=== PATIENT | female | born 1945 | race Two or more races ===

== ENCOUNTER → 2016-08-05 | Day surgery (SDC) | payer MEDICARE, OTHER ==
[2016-08-05] VITALS (8 sets, daily range): BP systolic 117–130; BP diastolic 73–89
[~2016-08-05] VITALS: Ht 167.6 cm; Wt 74.8 kg
[~2016-08-05] MED LIST: ACYCLOVIR200 MG ORAL; AMLODIPINE BESYL5 MG ORAL; Bacitracin Oint 15gm Tube TOPIC ONE; Betadine 10% Oint 15gm TOPIC ONE; Bupivacaine 0.5% Inj 30 ml vial INJ ONE; CAPTOPRIL25 M1 PO; COLACE100 MG ORAL; Dexamethasone 4mg/ml vial ONE; ENALAPRIL MALEA10 MG ORAL; Etomidate 40mg/20ml Inj IV ONE; LR 1000ml 1,000 ML IVLG SCH; LR 1000ml ONE; Lidocaine 1% Plain 30 ml INJ ONE; METFORMIN HCL500 M1 ORAL; NORCO 5-325 TA1 EACH ORAL; NS Irrig 1000ml ONE; Propofol 10mg/ml 100ml btl IV ONE; Propofol 10mg/ml 20ml IV ONE; SIMVASTATIN20 MG ORAL; Sterile Water Irrig 1000ml IRRIG ONE; TENORMIN25 MG ORAL; TRIBENZOR 40-11 EAC1 ORAL; fentaNYL 100 mcg/2 mL IV ONE; fentaNYL 100 mcg/2 mL IV PRN
--- NOTE | 2016-08-05 07:41 | Pre-Procedure Note/Attestation ---
Pre-Procedure Note/Attestation Complete Prior to Procedure Planned Procedure: right Procedure Narrative: Bunionectomy osteotomy right foot Hammertoe correction second right digit Tenotomy and capsulotomy second right MTPJ Indications for Procedure Pre-Operative Diagnosis: Hallux Abducto Valgus right foot Hammertoe deformity second right digit Attestation I attest that I discussed the nature of the procedure; its benefits; risks and complications; and alternatives (and the risks and benefits of such alternatives ), prior to the procedure, with the patient (or the patient's legal safety representative). I attest that, if there was a reasonable possibility of needing a blood transfusion, the patient (or the patient's legal safety representative) was given the [place] Department of Health Services standardized written summary, pursuant to the [place] Blood Safety Act ([place] Health and Safety Code # 1645, as amended). I attest that I re-evaluated the patient just prior to the surgery and that there has been no change in the patient's H&P, except as documented below: JONATHON BARKER Aug 05, 2016 07:41
--- NOTE | 2016-08-05 07:57 | Anethesia Preoperative Eval ---
Anesthesia Pre-op PMH/ROS General Date of Evaluation: Aug 05, 2016 Time of Evaluation: 07:30 Anesthesiologist: Usman ASA Score: ASA 2 Mallampati Score Class I : Soft palate, uvula, fauces, pillars visible Class II: Soft palate, uvula, fauces visible Class III: Soft palate, base of uvula visible Class IV: Only hard plate visible Mallampati Classification: Class II Surgeon: Osmani Diagnosis: Bunioin right foot Surgical Procedure: bunionectomy right foot Anesthesia History: none Family History: no anesthesia problems Allergies: Coded Allergies: NO KNOWN ALLERGIES (Unverified Allergy, 04/23/13) Medications: see eMAR Past Medical History Cardiovascular: Reports: HTN Gastrointestinal/Genitourinary: Denies: CRI, ESRD, GERD, other Neurologic/Psychiatric: Denies: CVA, TIA, dementia, depression/anxiety, other Endocrine: Reports: DM HEENT: Denies: AUGUSTINE (L), AUGUSTINE (R), cataract (L), cataract (R), glaucoma, other Hematology/Immune: Denies: DVT, anemia, bleeding disorder, other Musculoskeletal/Integumentary: Denies: DDD, DJD, OA, RA, edema, other PMH Narrative: HTN, Hypercholesterolemia, DM PSxH Narrative: Right nephrectomy Anesthesia Pre-op Phys. Exam Physician Exam Last Vital Signs Date Time Temp Pulse Resp B/P Pulse Ox O2 Delivery O2 Flow Rate FiO2 08/05/16 06:35 97.2 65 20 125/79 97 Room Air Constitutional: NAD Neurologic: CN 2-12 intact Cardiovascular: RRR Respiratory: CTA Gastrointestinal: S/NT/ND Airway Exam Mallampati Score: Class II MO: full ROM: full Teeth: intact Dentures: no lower, no upper CHELA KOHLER D.O. Aug 05, 2016 07:57
--- NOTE | 2016-08-05 09:26 | Brief Operative Note ---
Immediate Post Operative Note Operative Note Pre-op Diagnosis: Hallux Abducto Valgus right foot Hammertoe deformity second right digit Procedure: Bunionectomy osteotomy right foot Arthroplasty second right PIPJ Tenotomy and capsulotomy second right MPJ Post-op Diagnosis: same as pre-op Surgeon: Osmani Anesthesiologist: Usman Anesthesia: general Specimen: yes Complications: none Condition: stable Estimated Blood Loss: none Drains: none Implant(s) used?: Yes JONATHON BARKER Aug 05, 2016 09:26
--- NOTE | 2016-08-05 09:27 | Immediate Post-Op Evaluation ---
Immediate Post-Op Evalulation Immediate Post-Op Evalulation Procedure: nithin saavedra Date of Evaluation: Aug 05, 2016 Time of Evaluation: 09:25 IV Fluids: 500ml Blood Products: none Estimated Blood Loss: minimal Urinary Output: due to void Blood Pressure Systolic: 118 Blood Pressure Diastolic: 80 Pulse Rate: 70 Respiratory Rate: 16 O2 Sat by Pulse Oximetry: 100 Temperature (Fahrenheit): 98.8 Pain Score (1-10): 0 Nausea: No Vomiting: No Complications none Patient Status: awake, reacts Drug: ancef Given Within 1 Hr of Incision: Yes Time Given: 07:50 CHELA KOHLER D.O. Aug 05, 2016 09:27
--- NOTE | 2016-08-05 09:38 | 48 Hour Post Anesthesia Eval ---
Post Anesthesia Evaluation Procedure: bunionectomy right foot Date of Evaluation: Aug 05, 2016 Time of Evaluation: 09:36 Blood Pressure Systolic: 117 0: 77 Pulse Rate: 67 Respiratory Rate: 16 Temperature (Fahrenheit): 98 O2 Sat by Pulse Oximetry: 100 Nausea: No Vomiting: No Pain Intensity: 0 Hydration Status: adequate Cardiopulmonary Status: stable Mental Status/LOC: patient returned to baseline Follow-up Care/Observations: as per surgeon Post-Anesthesia Complications: none Follow-up care needed: N/A CHELA KOHLER D.O. Aug 05, 2016 09:38
--- NOTE | 2016-08-05 10:37 | Diagnostic Imaging Report ---
Indication: POST-OP Technique: 3 views foot Comparison: none Findings: Patient is status post first metatarsal osteotomy, bunionectomy, first proximal phalangeal osteotomy, with surgical hardware is in the osteotomies. There is also evidence of osteotomy of the head of the second proximal phalanx. There is severe hammertoe deformity of the third through fifth digits.. There is a small plantar spur. A small bone island is seen within the calcaneus. Gas within the soft tissues is presumably retained air from the surgical wound are there are degenerative changes of the midfoot Impression: Postsurgical changes, as described. No unusual features
--- NOTE | 2016-08-05 18:18 | Operative Note - Dictated ---
DATE OF OPERATION: 08/05/2016 SURGEON: Chapito Keen D.P.M. ANESTHESIOLOGIST: Gustavo Mary M.D. ANESTHESIA: Local standby PREOPERATIVE DIAGNOSES: 1. Hallux abductovalgus with bunion deformity, right foot. 2. Hammertoe deformity second right digit. 3. Contracture second right metatarsophalangeal joint. POSTOPERATIVE DIAGNOSES: 1. Hallux abductovalgus with bunion deformity, right foot. 2. Hammertoe deformity second right digit. 3. Contracture second right metatarsophalangeal joint. PROCEDURES PERFORMED: 1. Modified chevron osteotomy with screw fixation, right foot. 2. Jose A osteotomy with staple fixation right foot. 3. Arthroplasty second right proximal interphalangeal joint. 4. Tenotomy and capsulotomy, second right metatarsophalangeal joint. DESCRIPTION OF THE OPERATION: The patient brought to the operating room and was placed on the operating room table in the supine position. General anesthesia was administered by the anesthesiologist. Local anesthesia consisting of 0.5% Marcaine plain total of 20 mL was administered to the right foot. An ankle tourniquet was applied to the right lower extremity. The foot was prepped and draped in the usual sterile manner. An Esmarch bandage was utilized to exsanguinate the blood and the right ankle tourniquet was inflated to 250 mmHg. Attention was directed to the right hallux where an approximately 7 cm dorsal curvilinear skin incision was performed. The incision was deepened utilizing sharp and blunt dissection with care being taken and to cauterize all bleeders. At the level of the capsule, a linear capsulotomy was performed. The capsule was reflected medially and laterally and the head of the first metatarsal and base of the proximal phalanx were exposed. Utilizing a sagittal saw, the medial eminence of the first metatarsal was removed and the wound was copiously flushed utilizing sterile saline. At this point, chevron osteotomy was performed with the apex of the distal and the arms protruding proximally the through and through osteotomy was performed utilizing the sagittal saw. The capital fragment was transposed laterally and fixated onto the first metatarsal utilizing a 22 mm 2.5 headless screw. At this point, the overhang was resected in total utilizing a sagittal saw. The remaining bone was rasped smooth. The wound was copiously flushed utilizing sterile saline. Attention was directed to the distal aspect of the joint and the soft tissue. The capsule and periosteum was reflected from the base and shaft of the proximal phalanx. Medial wedge was then resected utilizing the sagittal saw with care taken to leave the lateral cortex intact. The osteotomy was reduced and fixated with staple which was inserted just proximal and distal to the osteotomy. At this point, the wound was copiously flushed. The capsule was then reapproximated utilizing 3-0 Vicryl in simple interrupted type stitch. Subcutaneous tissue was then reapproximated utilizing 4-0 Vicryl in a buried knot type stitch. The skin was then reapproximated utilizing 4-0 nylon in a simple interrupted type stitch. Attention was then directed to the second digit where an approximately 5 centimeters dorsal linear skin incision was carried just proximal to the metatarsophalangeal joint to just distal to the proximal interphalangeal joint. The incision was deepened utilizing sharp and blunt dissection with care being taken to cauterize and ligate all bleeders. At the level of the proximal interphalangeal joint, the extensor tendon was transversely tenotomized and reflected proximally. The head of the proximal phalanx was exposed and the collateral ligaments were severed. Utilizing a sagittal saw, the head of the proximal phalanx was resected in total. The remaining bone was rasped smooth. The wound was copiously flushed utilizing sterile saline. At this point, the wound was dissected down to the level of the second metatarsophalangeal joint. The extensor tendon was tenotomized and the capsule was freed utilizing a McGlamry scoop. The joints was freed in total and the digit was brought into a rectus position. The wound was copiously flushed utilizing sterile saline. At this point, the extensor tendon was reapproximated distally with a 4-0 Vicryl in a simple interrupted type stitch. The subcutaneous tissue was then reapproximated utilizing 4-0 Vicryl in a buried knot type stitch. The skin was then reapproximated utilizing 4-0 nylon in a simple interrupted type stitch. The wound was dressed utilizing an Adaptic 4 x 4 gauze and 3 inch Gurdeep. The right ankle tourniquet was deflated and vascular supply was noted to all digits right foot. Chapito Keen D.P.M. DR: Ishaan JOB#: [id number] CC:
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
== END | disposition home or self-care (01) ==
LOC: SUR 05:41
DX: M20.11 Hallux valgus (acquired), right foot (principal); M21.611 Bunion of right foot; M20.41 Other hammer toe(s) (acquired), right foot; M24.574 Contracture, right foot; E11.9 Type 2 diabetes mellitus without complications; I10 Essential (primary) hypertension; E78.00 Pure hypercholesterolemia, unspecified; K21.9 Gastro-esophageal reflux disease without esophagitis; H93.19 Tinnitus, unspecified ear; H91.90 Unspecified hearing loss, unspecified ear; F33.9 Major depressive disorder, recurrent, unspecified; N39.3 Stress incontinence (female) (male); G47.00 Insomnia, unspecified; B00.1 Herpesviral vesicular dermatitis; M19.90 Unspecified osteoarthritis, unspecified site; R05 Cough; Z90.5 Acquired absence of kidney
CPT/HCPCS: 28270; 28285; 28299; 73630; 82962; 97161; C1713; G8978; G8979; G8980; J0690; J1100; J2405; J2704; J3010; J3490; J7120; 94003; 94150

== ENCOUNTER 2017-01-24 19:22 | Emergency (ER) | payer MEDICARE, OTHER ==
[~2017-01-24] VITALS: Ht 167.6 cm; Wt 77.1 kg
[~2017-01-24 19:22] MED LIST changes: -Bacitracin Oint 15gm Tube TOPIC ONE; -Betadine 10% Oint 15gm TOPIC ONE; -Bupivacaine 0.5% Inj 30 ml vial INJ ONE; -Dexamethasone 4mg/ml vial ONE; -Etomidate 40mg/20ml Inj IV ONE; -LR 1000ml 1,000 ML IVLG SCH; -LR 1000ml ONE; -Lidocaine 1% Plain 30 ml INJ ONE; -NS Irrig 1000ml ONE; -Propofol 10mg/ml 100ml btl IV ONE; -Propofol 10mg/ml 20ml IV ONE; -Sterile Water Irrig 1000ml IRRIG ONE; -fentaNYL 100 mcg/2 mL IV ONE; -fentaNYL 100 mcg/2 mL IV PRN
[2017-01-24 20:00] VITALS: BP 176/84
--- NOTE | 2017-01-24 21:29 | Emergency Room Report ---
History of Present Illness General Chief Complaint: Pain Source: Patient Present Illness HPI This patient complains of pain in the back of her left knee. She does have a history of arthritis here. She states that this causes cramping in her left leg. She states that the symptoms have been going on for several weeks. She denies chest pain or shortness of breath. She denies abdominal pain. She denies fever or chills. She denies leg swelling. She denies trauma. She has no other complaints. Allergies: Coded Allergies: NO KNOWN ALLERGIES (Unverified Allergy, 04/23/13) Patient History Past Medical History: see triage record, DM, HTN, GERD Social History: Denies: smoking, alcohol use, drug use Reviewed Nursing Documentation: PMH: Agreed, PSxH: Agreed Nursing Documentation-PMH Hx Cardiac Problems: Yes Hx Hypertension: Yes Hx Pacemaker: No Hx Asthma: No Hx COPD: No Hx Diabetes: Yes Hx Cancer: Yes Hx Gastrointestinal Problems: Yes Hx Dialysis: No Hx Neurological Problems: No Hx Cerebrovascular Accident: No Hx Seizures: No Review of Systems All Other Systems: negative except mentioned in HPI Physical Exam Vital Signs Date Time Temp Pulse Resp B/P (MAP) Pulse Ox O2 Delivery O2 Flow Rate FiO2 01/24/17 19:25 98.2 83 20 176/84 99 Room Air Sp02 EP Interpretation: reviewed, normal General Appearance: no apparent distress, alert, GCS 15, non-toxic Head: normocephalic, atraumatic Eyes: bilateral eye normal inspection, bilateral eye PERRL ENT: hearing grossly normal, normal pharynx, no angioedema, normal voice Neck: full range of motion, supple/symm/no masses Respiratory: chest non-tender, lungs clear, normal breath sounds, speaking full sentences Cardiovascular #1: regular rate, rhythm, no edema Gastrointestinal: normal bowel sounds, non tender, soft, non-distended, no guarding, no rebound Rectal: deferred Musculoskeletal: back normal, gait/station normal, normal range of motion, other - TTP behind the L. knee with mild swelling. No erythema or warmth. Neurologic: alert, oriented x3, responsive, motor strength/tone normal, sensory intact, speech normal Psychiatric: judgement/insight normal, memory normal, mood/affect normal, no suicidal/homicidal ideation Skin: normal color, no rash, warm/dry, well hydrated Medical Decision Making Diagnostic Impression: Primary Impression: Iglesias's cyst of knee ER Course This patient was found to have a Iglesias's cyst of the left knee. Ultrasound of the leg shows no DVT. Knee x-ray shows no acute findings. There is no evidence of cellulitis on exam. The pain and tenderness is very localized to the left knee. The patient was given an Eric wrap for comfort. The patient has multiple pain medications at home. She is instructed to followup with her primary care physician and to see an orthopedist. At this time I did not identify an emergency medical condition. The patient is given close return precautions and followup instructions. Last Vital Signs Date Time Temp Pulse Resp B/P (MAP) Pulse Ox O2 Delivery O2 Flow Rate FiO2 01/24/17 19:25 98.2 83 20 176/84 99 Room Air Status: improved Disposition: HOME, SELF-CARE Condition: Improved Referrals: NAN GRANT (PCP) SUDHAKAR BARROS D.O. Jan 24, 2017 21:29
[2017-01-24 22:03] VITALS: BP 136/70
[2017-01-24 22:45] VITALS: BP 130/72
[2017-01-24 22:50] VITALS: BP 130/72
--- NOTE | 2017-01-25 11:15 | Diagnostic Imaging Report ---
Indication: PAIN Technique: 3 views of the left knee Comparison: None Findings:There is equivocally a trace suprapatellar effusion. No acute fractures. No dislocations. Joint spaces are preserved Impression:No acute process
--- NOTE | 2017-01-26 14:43 | Diagnostic Imaging Report ---
APPROVED REPORT CPT Code: 68560 Present Symptoms Lower Extremity Pain: Left Lower Extremity Edema: Left Comments: Left knee pain. Hx bilateral arthritis at the knee. LEFT LEG: Venous imaging reveals a patent deep venous system. There is no evidence of thrombus within the femoral, popliteal or tibial segments. The greater saphenous vein is also within normal limits. Doppler indicates normal spontaneous flow within these segments. Incidental findings: Fluid at the mid and lateral anterior knee joint. Iglesias's cyst in the popliteal fossa measuring 3.9 cm x 1.2 cm x 2.0 cm.
== END 2017-01-24 22:50 | disposition home or self-care (01) ==
LOC: EMR 20:57
DX: M71.22 Synovial cyst of popliteal space [Baker], left knee (principal); I10 Essential (primary) hypertension; K21.9 Gastro-esophageal reflux disease without esophagitis; E11.9 Type 2 diabetes mellitus without complications; Z85.9 Personal history of malignant neoplasm, unspecified
CPT/HCPCS: 93971; 99282

== ENCOUNTER 2017-07-12 05:47 | Day surgery (SDC) | payer MEDICARE, OTHER ==
[~2017-07-12] VITALS: Ht 167.6 cm; Wt 72.6 kg
[2017-07-12] VITALS (11 sets, daily range): BP systolic 119–138; BP diastolic 68–86
[2017-07-12] MEDS ORDERED: Bupivacaine 0.5% Inj 30 ml vial INJ ONE (07:09)
[2017-07-12] MEDS ORDERED: Dexamethasone 4mg/ml vial ONE (07:10)
[2017-07-12] MEDS ORDERED: Lidocaine 1% Plain 30 ml INJ ONE (07:10)
--- NOTE | 2017-07-12 07:22 | Anethesia Preoperative Eval ---
Anesthesia Pre-op PMH/ROS General Date of Evaluation: Jul 12, 2017 Anesthesiologist: Chirag ASA Score: ASA 3 Mallampati Score Class I : Soft palate, uvula, fauces, pillars visible Class II: Soft palate, uvula, fauces visible Class III: Soft palate, base of uvula visible Class IV: Only hard plate visible Mallampati Classification: Class II Surgeon: Osmani Diagnosis: Right hammertoes #3,4,5 Surgical Procedure: Right hammertoe correction #3,4,5 Anesthesia History: none Family History: no anesthesia problems Allergies: Coded Allergies: NO KNOWN ALLERGIES (Unverified Allergy, 04/23/13) Medications: see eMAR Past Medical History Cardiovascular: Reports: HTN, other - HLD, Denies: CAD, SC, valve dz, arrhythmia Pulmonary: Denies: asthma, COPD, SATURNINO, other Gastrointestinal/Genitourinary: Reports: GERD, other - right kidney cancer s/p nephrectomy, Denies: CRI, ESRD Neurologic/Psychiatric: Reports: depression/anxiety, Denies: dementia, CVA, TIA, other Endocrine: Reports: DM - [id number], Denies: hypothyroidism, steroids, other HEENT: Reports: cataract (L), cataract (R), COMANCHE (L), Denies: glaucoma, COMANCHE (R), other Hematology/Immune: Reports: anemia - chronic, Denies: DVT, bleeding disorder, other Musculoskeletal/Integumentary: Reports: OA, Denies: RA, DJD, DDD, edema, other PSxH Narrative: Right nephrectomy Anesthesia Pre-op Phys. Exam Physician Exam Last Vital Signs Date Time Temp Pulse Resp B/P (MAP) Pulse Ox O2 Delivery O2 Flow Rate FiO2 07/12/17 06:55 97.5 56 20 138/86 98 Room Air 97.5 Constitutional: NAD Cardiovascular: RRR Respiratory: CTA Airway Exam Mallampati Score: Class II MO: full ROM: full Teeth: missing, intact Dentures: upper Anesthesia Pre-op A/P Labs see chart Studies Pre-op Studies: EKG - SB Risk Assessment & Plan Assessment: ASA III Plan: GA Status Change Before Surgery: No Pre-Antibiotics Drug: Ancef 1g Given Within 1 Hr of Incision: Yes Time Given: 07:35 LUIS PABLO M.D. Jul 12, 2017 07:22
[2017-07-12] MEDS ORDERED: NS Irrig 1000ml ONE (07:30)
[2017-07-12] MEDS ORDERED: fentaNYL 100 mcg/2 mL IV ONE (07:30)
[2017-07-12] MEDS ORDERED: Sterile Water Irrig 1000ml IRRIG ONE (07:30)
[2017-07-12] MEDS ORDERED: Midazolam 2mg/2ml Inj ONE (07:30)
[2017-07-12] MEDS ORDERED: LR 1000ml ONE (07:30)
[2017-07-12] MEDS ORDERED: Lidocaine 1% MPF 10mg/ml 5ml ONE (07:30)
[2017-07-12] MEDS ORDERED: Propofol 200mg/20ml IV ONE (07:30)
--- NOTE | 2017-07-12 07:35 | Pre-Procedure Note/Attestation ---
Pre-Procedure Note/Attestation Complete Prior to Procedure Planned Procedure: right Procedure Narrative: Hammertoe correction third, fourth and fifth right digits. Tenotomy and Capsulotomy third, fourth and fifth metatarsophalangeal joints Indications for Procedure Pre-Operative Diagnosis: Hammertoe deformity third, fourth and fifth right digits Contractures third, fourth and fifth right MTPJ Attestation I attest that I discussed the nature of the procedure; its benefits; risks and complications; and alternatives (and the risks and benefits of such alternatives ), prior to the procedure, with the patient (or the patient's legal dental sales representative). I attest that, if there was a reasonable possibility of needing a blood transfusion, the patient (or the patient's legal dental sales representative) was given the [place] Department of Health Services standardized written summary, pursuant to the [place] Blood Safety Act ([place] Health and Safety Code # 1645, as amended). I attest that I re-evaluated the patient just prior to the surgery and that there has been no change in the patient's H&P, except as documented below: JONATHON BARKER Jul 12, 2017 07:35
[2017-07-12] MEDS ORDERED: LR 1000ml 1,000 ML IVLG SCH (07:55)
--- NOTE | 2017-07-12 07:58 | Immediate Post-Op Evaluation ---
Immediate Post-Op Evalulation Immediate Post-Op Evalulation Procedure: Right hammertoe correction #3,4,5 Date of Evaluation: Jul 12, 2017 Time of Evaluation: 09:19 IV Fluids: 1L Blood Products: 0 Estimated Blood Loss: min Urinary Output: 0 Blood Pressure Systolic: 132 Blood Pressure Diastolic: 68 Pulse Rate: 78 Respiratory Rate: 16 O2 Sat by Pulse Oximetry: 99 Temperature (Fahrenheit): 97.3 Pain Score (1-10): 0 Nausea: No Vomiting: No Complications 0 Patient Status: awake, reacts, patent, none Hydration Status: adequate Drug: Ancef 1g Given Within 1 Hr of Incision: Yes Time Given: 07:35 LUIS PABLO M.D. Jul 12, 2017 07:58
[2017-07-12] MEDS ORDERED: DiphenhydrAMINE 50mg/ml Inj IVP PRN (08:00)
[2017-07-12] MEDS ORDERED: fentaNYL 100 mcg/2 mL IV PRN (08:00)
[2017-07-12] MEDS ORDERED: Hydromorphone 0.5mg/0.5ml inj IVP PRN (08:00)
--- NOTE | 2017-07-12 08:02 | 48 Hour Post Anesthesia Eval ---
Post Anesthesia Evaluation Procedure: Right hammertoe correction #3,4,5 Date of Evaluation: Jul 12, 2017 Time of Evaluation: 10:35 Blood Pressure Systolic: 128 0: 80 Pulse Rate: 68 Respiratory Rate: 16 Temperature (Fahrenheit): 97.6 O2 Sat by Pulse Oximetry: 98 Airway: patent Nausea: No Vomiting: No Pain Intensity: 0 Hydration Status: adequate Cardiopulmonary Status: at baseline Mental Status/LOC: patient returned to baseline Post-Anesthesia Complications: 0 Follow-up care needed: ready to discharge LUIS PABLO M.D. Jul 12, 2017 08:02
--- NOTE | 2017-07-12 09:14 | Brief Operative Note ---
Immediate Post Operative Note Operative Note Pre-op Diagnosis: Hammertoe deformity third, fourth and fifth right digits Contractures third, fourth and fifth right MTPJ Procedure: Arthroplasties 3,4,5 PIPJ right foot Tenotomy and capsulotomy 3,4,5 right MTPJ Post-op Diagnosis: same as pre-op Surgeon: Osmani Anesthesiologist: Guerda Anesthesia: general Specimen: yes Complications: none Condition: stable Fluids: 100 Estimated Blood Loss: none Drains: none Implant(s) used?: No JONATHON BARKER Jul 12, 2017 09:14
--- NOTE | 2017-07-12 10:57 | Diagnostic Imaging Report ---
Indication: Pain. Technique: XRAY Foot Complete R Comparison: 08/05/2016 Findings: Postoperative appearance of the foot again noted status post first metatarsal osteotomy, bunionectomy, first proximal phalangeal osteotomy and osteotomy of the second proximal phalanx. Hardware within the first digit unchanged in position. There has been interval osteotomy of the third fourth and possibly fifth proximal phalanges. Correlation with surgical record recommended. No acute fracture identified. Degenerative change of multiple tarsal articulations noted. Impression: Postoperative appearance of the foot, as described.
--- NOTE | 2017-07-12 17:30 | Operative Note - Dictated ---
DATE OF OPERATION: 07/12/2017 SURGEON: Chapito Keen D.P.M. ANESTHESIOLOGIST: Ann Croft M.D. ANESTHESIA: Local standby. PREOPERATIVE DIAGNOSES: 1. Hammertoe deformities third, fourth, and fifth digits, right foot. 2. Contractures of metatarsophalangeal joints third, fourth, and fifth, right foot. POSTOPERATIVE DIAGNOSES: 1. Hammertoe deformities third, fourth, and fifth digits, right foot. 2. Contractures of metatarsophalangeal joints third, fourth, and fifth, right foot. PROCEDURE PERFORMED: 1. Arthroplasty third right proximal interphalangeal joint. 2. Tenotomy and capsulotomy, third right metatarsophalangeal joint. 3. Arthroplasty, proximal interphalangeal joint. 4. Tenotomy and capsulotomy, fourth metatarsophalangeal joint, right foot. 5. Arthroplasty of proximal interphalangeal joint, fifth right digit. 6. Tenotomy and capsulotomy, fifth metatarsophalangeal joint, right foot. DESCRIPTION OF THE OPERATION: The patient was brought to the operating room and was placed on the operating room table in the supine position. Intravenous sedation was administered by the anesthesiologist. Local anesthesia consisting of 20 mL of 0.5% Marcaine plain was administered to the right foot. An ankle tourniquet was applied to the right lower extremity. The foot was prepped and draped in the usual sterile manner. An Esmarch bandage was utilized to exsanguinate the blood and the right ankle tourniquet was inflated to 250 mmHg. Attention was directed to the third right digit where an approximately 5 cm dorsal linear skin incision was carried from proximal to the third metatarsophalangeal joint to just distal to the proximal interphalangeal joint. The incision was deepened utilizing sharp and blunt dissection with care being taken to cauterize and ligate all bleeders. At the level of the proximal interphalangeal joint, a transverse tenotomy was performed. The extensor tendon was resected and the head of the proximal phalanx was exposed. The collateral ligaments were severed. Utilizing a sagittal saw, the head of the proximal phalanx was resected in total. The remaining bone was rasped smooth. The wound was then copiously flushed utilizing sterile saline. The wound was then dissected proximally to the level of the third metatarsophalangeal joint. A transverse tenotomy was performed. The capsule was freed and utilizing McGlamry scoop, the collateral and soft tissue attachments were detached from the head of the third metatarsal. The wound was copiously flushed utilizing sterile saline. Attention was then directed to the extensor tendon distally utilizing 4-0 Vicryl. The extensor tendon was reapproximated utilizing simple interrupted type stitch. At this point, the soft tissue was reapproximated just overlying the third metatarsophalangeal joint with 3-0 Vicryl utilizing buried knot type stitch. The subcutaneous tissue overlying the joint was then reapproximated utilizing 4-0 Vicryl in a buried knot type stitch. The skin was then reapproximated utilizing 4-0 nylon in a simple interrupted type stitch. Attention was then directed to the fourth digit where the exact procedures that were performed on the third toe were carried out. Attention was directed to the fifth digit where the exact same procedures that were carried to third and fourth digits were carried out. The wound was then dressed utilizing an Adaptic 4 x 4 gauze and 3-inch Gurdeep. The right ankle tourniquet was deflated and vascular supply was noted to all digits of right foot. Chapito Keen D.P.M. DR: SERVANDO JOB#: [id number] CC:
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
== END 2017-07-12 10:50 | disposition home or self-care (01) ==
LOC: SUR 05:47
DX: M20.41 Other hammer toe(s) (acquired), right foot (principal); M20.5X1 Other deformities of toe(s) (acquired), right foot; Z90.5 Acquired absence of kidney; I10 Essential (primary) hypertension; E11.9 Type 2 diabetes mellitus without complications; M19.90 Unspecified osteoarthritis, unspecified site; E78.00 Pure hypercholesterolemia, unspecified; K21.9 Gastro-esophageal reflux disease without esophagitis; F32.9 Major depressive disorder, single episode, unspecified; F41.9 Anxiety disorder, unspecified; Z85.528 Personal history of other malignant neoplasm of kidney
CPT/HCPCS: 28234; 28285; 73630; 82962; J1100; J2250; J2704; J3010; J3490; J7120; 94003; 94150